=== PATIENT | female | born 1990 | race Two or more races ===

== ENCOUNTER 2016-10-14 14:16 | Inpatient (IN) | payer SELFPAY ==
[~2016-10-14] VITALS: Ht 156.2 cm; Wt 89.8 kg
[2016-10-14] MEDS ORDERED: IV RINGERS,LACTATED 1000ML 1,000 ML IV SCH (14:49)
[2016-10-14] MEDS ORDERED: IBUPROFEN 600 MG TABLET. PO PRN (15:00)
[2016-10-14] MEDS ORDERED: LIDOCAINE 1% PF 30 ML VIAL. INJ PRN (15:00)
[2016-10-14] MEDS ORDERED: OXYTOCIN 30 UNIT/500 ML PREMIX 500 ML IV PRN ×3 (15:00→19:15)
[2016-10-14] MEDS ORDERED: FENTANYL PF 100 MCG/2 ML VIAL. IV PRN (15:00)
[2016-10-14 15:07] LABS: HEMOGLOBIN 11.4 g/dL (12.0-15.5); RED BLOOD COUNT 4.01 x10^6/uL (3.50-5.40); RED CELL DISTRIBUTION WIDTH 17.5 % (11.5-14.5); WHITE BLOOD COUNT 7.2 x10^3/uL (4.0-11.0)
[2016-10-14] MEDS ORDERED: PENICILLIN G K 5,000,000 UNIT in IV NORMAL SALINE 100ML 100 ML IV ONE (15:45)
[2016-10-14 16:15] VITALS: BP 115/67
[2016-10-14 16:32] LABS: OBC FLU VALID
[2016-10-14] MEDS: OSELTAMIVIR 75 MG CAPSULE PO SCH (17:14)
--- NOTE | 2016-10-14 17:32 | PDOC1 ---
OB - History Hx of Present Care: Good Care Ultrasounds: Normal mid trimester US Obstetrical Complications: None Medical Complications: None Past Family/Social History * Past Medical, Surgical, Family and Obstetric Histories reviewed from chart. Rubella: Immune RPR/VDRL: Negative HBsAG: Negative OB - Chief Complaint & HPI Date of Admission: Date of Admission: Oct 14, 2016 at 14:16 Chief Complaint/History : 4 Para: 3 EGA: 38 Reason for admission: active labor Admission Nurse Assessment Rev: Yes Problems: OB - Admission Exam Physical Exam Vitals: VS - Last 72 Hours, by Label Date Time Temp Pulse Resp B/P Pulse Ox O2 Delivery O2 Flow Rate FiO2 10/14/16 16:15 98.8 80 20 115/67 98.8 HEENT: Normal Heart: Regular Rate Lungs: Clear Abdomen: Gravid, Non tender, Soft Extremities: Edema Reflexes: Normal Cervical Dilatation: 4cm Effacement: 75% Station: -2 Membranes: Ruptured Amniotic Fluid: Clear Heart Rate: Normal Accelerations: Accelerations Present Decelerations: No decelerations Contractions on Admission: < 5 Minutes Apart Intensity: Firm Text A: 38 wks IUP SROM Active labor P: Admit for labor management. JILLIAN WATTS Jr, MD Oct 14, 2016 17:32
--- NOTE | 2016-10-14 19:07 | PDOC ---
VAGINAL DELIVERY DATE DATE: 10/14/16 TIME: 19:05 : 4 Para: 4 EGA: 38 VAGINAL DELIVERY: VTX VACCUM ASSISTED: No PLACENTA: Spontaneous 8/9 SEX: Male WEIGHT Weight [ 3515 gm] Nuchal Cord: No Amniotic Fluid: Clear PAIN: Natural EPISIOTOMY: No EXTENSION: No EBL 300 ml COMPLICATIONS none CONDITION pt. stable Signs of Intrauterine Infectio: None Shoulder Dystocia: No, Kaveh Maneuver, Suprapubic Pressure Problems: JILLIAN WATTS Jr, MD Oct 14, 2016 19:07
[2016-10-14] MEDS ORDERED: MAG HYDROX/ALUMINUM HYD/SIMETH 30 ML ORAL.SUSP PO PRN (19:15)
[2016-10-14] MEDS ORDERED: MAGNESIUM HYDROXIDE 2,400 MG/30 ML ORAL.SUSP. PO PRN (19:15)
[2016-10-14] MEDS ORDERED: HYDROCORTISONE 1% TOPICAL OINTMENT 30GM TUBE. TP PRN (19:15)
[2016-10-14] MEDS ORDERED: OXYCODONE/APAP 5/325 TABLET. PO PRN (19:15)
[2016-10-14] MEDS ORDERED: SIMETHICONE 80 MG TAB.CHEW PO PRN (19:15)
[2016-10-14] MEDS ORDERED: ZOLPIDEM 5 MG TABLET. PO PRN (19:15)
[2016-10-14] MEDS ORDERED: MMR per PROTOCOL. MC PRN (19:15)
[2016-10-14] MEDS ORDERED: PHENYLEPH/MINERAL OIL/PETROLAT RECTAL OINTMENT 28GM TUBE. RC PRN (19:15)
[2016-10-14] MEDS ORDERED: DIPHENHYDRAMINE HCL 25 MG CAPSULE PO PRN (19:15)
[2016-10-14] MEDS ORDERED: BENZOCAINE 20% TOPICAL AEROSOL SPRAY 57GM CAN. TP PRN (19:15)
[2016-10-14] MEDS ORDERED: 0.9 % SODIUM CHLORIDE 10 ML DISP.SYRIN. IV PRN (19:15)
[2016-10-14] MEDS ORDERED: ACETAMINOPHEN 325 MG TABLET. PO PRN (19:15)
[2016-10-14] MEDS: IBUPROFEN 800 MG TABLET. PO PRN (21:26)
[2016-10-14 21:57] VITALS: BP 107/59
[2016-10-14 22:34] VITALS: BP 109/76
[2016-10-15] MEDS: IBUPROFEN 800 MG TABLET. PO PRN ×2 (03:50→20:57)
[2016-10-15 04:00] VITALS: BP 104/59
[2016-10-15 05:39] LABS: BASO % 0 % (0-3); EOS % 0 % (0-3); HEMATOCRIT 34.3 % (36.0-47.0); HEMOGLOBIN 11.3 g/dL (12.0-15.5); LYMPH # 1.1 x10^3/uL (1.0-4.8); LYMPH % 14 % (24-48); MEAN CORPUSCULAR HEMOGLOBIN 29 pg (25-35); MEAN CORPUSCULAR HGB CONC 33 g/dL (31-37); MEAN CORPUSCULAR VOLUME 87 fL (79-100); MONO % 8 % (0-9); NEUT % 78 % (31-73); PLATELET COUNT 188 x10^3/uL (140-400); RED BLOOD COUNT 3.95 x10^6/uL (3.50-5.40); RED CELL DISTRIBUTION WIDTH 17.3 % (11.5-14.5); WHITE BLOOD COUNT 8.1 x10^3/uL (4.0-11.0)
[2016-10-15] MEDS ORDERED: FERROUS SULFATE 325 MG TABLET PO SCH (08:00)
--- NOTE | 2016-10-15 08:45 | PDOC ---
OB Progress Note Date of Service 10/15/16 Time of Evaluation 0840 Notes Pt. with Influenza B. No fevers or severe URI at this time. She delivered yesterday without complications. She desires PP BTL. Lab Laboratory Tests Test 10/14/16 14:45 10/14/16 15:53 10/14/16 16:10 10/15/16 05:00 White Blood Count 7.2x10^3/uL (4.0-11.0) 8.1x10^3/uL (4.0-11.0) Red Blood Count 4.01x10^6/uL (3.50-5.40) 3.95x10^6/uL (3.50-5.40) Hemoglobin 11.4g/dL (12.0-15.5) 11.3g/dL (12.0-15.5) Hematocrit 35.0% (36.0-47.0) 34.3% (36.0-47.0) Mean Corpuscular Volume 87fL (79-100) 87fL (79-100) Mean Corpuscular Hemoglobin 29pg (25-35) 29pg (25-35) Mean Corpuscular Hemoglobin Concent 33g/dL (31-37) 33g/dL (31-37) Red Cell Distribution Width 17.5% (11.5-14.5) 17.3% (11.5-14.5) Platelet Count 183x10^3/uL (140-400) 188x10^3/uL (140-400) RPR Titer Additional Testing Negative (Non Reactive) Influenza Type A Antigen Negative (NEGATIVE) Influenza Type B Antigen Positive (NEGATIVE) Neutrophils (%) (Auto) 78% (31-73) Lymphocytes (%) (Auto) 14% (24-48) Monocytes (%) (Auto) 8% (0-9) Eosinophils (%) (Auto) 0% (0-3) Basophils (%) (Auto) 0% (0-3) Neutrophils # (Auto) 6.3x10^3uL (1.8-7.7) Lymphocytes # (Auto) 1.1x10^3/uL (1.0-4.8) Monocytes # (Auto) 0.7x10^3/uL (0.0-1.1) Eosinophils # (Auto) 0.0x10^3/uL (0.0-0.7) Basophils # (Auto) 0.0x10^3/uL (0.0-0.2) Laboratory Tests Test 10/14/16 14:45 10/14/16 15:53 10/14/16 16:10 10/15/16 05:00 White Blood Count 7.2x10^3/uL (4.0-11.0) 8.1x10^3/uL (4.0-11.0) Red Blood Count 4.01x10^6/uL (3.50-5.40) 3.95x10^6/uL (3.50-5.40) Hemoglobin 11.4g/dL (12.0-15.5) 11.3g/dL (12.0-15.5) Hematocrit 35.0% (36.0-47.0) 34.3% (36.0-47.0) Mean Corpuscular Volume 87fL (79-100) 87fL (79-100) Mean Corpuscular Hemoglobin 29pg (25-35) 29pg (25-35) Mean Corpuscular Hemoglobin Concent 33g/dL (31-37) 33g/dL (31-37) Red Cell Distribution Width 17.5% (11.5-14.5) 17.3% (11.5-14.5) Platelet Count 183x10^3/uL (140-400) 188x10^3/uL (140-400) RPR Titer Additional Testing Negative (Non Reactive) Influenza Type A Antigen Negative (NEGATIVE) Influenza Type B Antigen Positive (NEGATIVE) Neutrophils (%) (Auto) 78% (31-73) Lymphocytes (%) (Auto) 14% (24-48) Monocytes (%) (Auto) 8% (0-9) Eosinophils (%) (Auto) 0% (0-3) Basophils (%) (Auto) 0% (0-3) Neutrophils # (Auto) 6.3x10^3uL (1.8-7.7) Lymphocytes # (Auto) 1.1x10^3/uL (1.0-4.8) Monocytes # (Auto) 0.7x10^3/uL (0.0-1.1) Eosinophils # (Auto) 0.0x10^3/uL (0.0-0.7) Basophils # (Auto) 0.0x10^3/uL (0.0-0.2) Medications Current Medications Lactated Ringer's (Iv Lactated Ringers) 1,000 ml @ 125 mls/hr Q8H IV Last administered on 10/14/16 15:04; Start 10/14/16 at 14:49 Fentanyl Citrate (Fentanyl 2ml Vial) 100 mcg PRN Q1HR PRN IV Severe pain Last administered on 10/14/16 17:53; Start 10/14/16 at 15:00 Lidocaine HCl 30 ml 30 ml 1X PRN PRN INJ SEE COMMENTS; Start 10/14/16 at 15:00; Stop 10/16/16 at 14:59 Oxytocin/Sodium Chloride (Oxytocin Premix Infusion) 500 ml @ 0 mls/hr CONT PRN PRN IV Post delivery bleeding; Start 10/14/16 at 15:00 Ibuprofen 600 mg 600 mg PRN Q6HRS PRN PO PAIN; Start 10/14/16 at 15:00 Penicillin G Potassium/Sodium Chloride (Pfizerpen/Iv Sodium Chloride 0.9% 100ml ) 100 ml @ 100 mls/hr 1X ONCE IV Last administered on 10/14/16 16:06; Start 10/14/16 at 15:45; Stop 10/14/16 at 16:44; Status DC Oseltamivir Phosphate 75 mg 75 mg BID PO Last administered on 10/14/16 17:14; Start 10/14/16 at 17:00; Stop 10/19/16 at 16:59 Oxytocin/Sodium Chloride (Oxytocin Premix Infusion) 500 ml @ 0 mls/hr CONT PRN IV SEE I/O RECORD Last administered on 10/14/16 17:54; Start 10/14/16 at 16:45 Sodium Chloride 10 ml 10 ml QSHIFT PRN IV AFTER MEDS AND BLOOD DRAWS; Start 10/14/16 at 19:15 Oxytocin/Sodium Chloride (Oxytocin Premix Infusion) 500 ml @ 62.5 mls/hr CONT PRN IV SEE I/O RECORD; Start 10/14/16 at 19:15; Stop 10/15/16 at 03:14; Status DC Acetaminophen (Tylenol) 650 mg PRN Q6HRS PRN PO MILD PAIN / TEMP; Start at 19:15 Ibuprofen (Motrin) 800 mg PRN Q8HRS PRN PO INFLAMMATION/PAIN PREVENTION Last administered on 10/15/16t 03:50; Start 10/14/16 at 19:15 Docusate Sodium (Colace) 100 mg PRN BID PRN PO CONSTIPATION; Start 10/14/16 at 19:15 Magnesium Hydroxide (Milk Of Magnesia) 2,400 mg PRN DAILY PRN PO CONSTIPATION; Start 10/14/16 at 19:15 Al Hydroxide/Mg Hydroxide (Mylanta Plus Xs) 30 ml PRN Q4HRS PRN PO HEARTBURN / GAS; Start 10/14/16 at 19:15 Simethicone (Gas-X) 80 mg PRN AFTMEALHC PRN PO GAS / BLOATING; Start 10/14/16 at 19:15 Diphenhydramine HCl (Benadryl) 25 mg PRN Q6HRS PRN PO ITCHING; Start 10/14/16 at 19:15 Benzocaine (Americaine) 1 spray PRN QID PRN TP TOPICAL PAIN Last administered on 10/14/16t 21:26; Start 10/14/16 at 19:15 Phenyleph/Shark Oil/Min Oil/Petrol (Preparation H) 1 luis PRN QID PRN RC RECTAL PAIN; Start 10/14/16 at 19:15 Hydrocortisone (Cortaid) 1 luis PRN QID PRN TP PERINEAL PAIN; Start 10/14/16 at 19:15 Ferrous Sulfate (Feosol) 325 mg BIDWMEALS PO ; Start 10/15/16 at 08:00 Zolpidem Tartrate (Ambien) 5 mg PRN QHS PRN PO INSOMNIA, MAY REPEAT X1; Start 10/14/16 at 19:15 Info (Do NOT chart on this placeholder) 1 ea 1X PRN PRN MC SEE COMMENTS; Start 10/14/16 at 19:15 Info (Do NOT chart on this placeholder) 1 ea 1X PRN PRN MC SEE COMMENTS; Start 10/14/16 at 19:15 Oxycodone/ Acetaminophen (Percocet 5/325) 2 tab PRN Q4HRS PRN PO MODERATE PAIN , SEVERE PAIN; Start 10/14/16 at 19:15 Exam CV: NSR without murmur Lungs: CTA kevin. Abd: soft, mild tendernes, fundus firm Assessment PPD#1 s/p Plan of Care: Continue current Tx, Mgmt (Plan for PP BTL today.) JILLIAN WATTS Jr, MD Oct 15, 2016 08:44
[2016-10-15] MEDS: DOCUSATE SODIUM 100 MG CAPSULE PO PRN (09:18)
[2016-10-15 11:15] VITALS: BP 106/68
[2016-10-15] MEDS ORDERED: SUCCINYLCHOLINE 200 MG/10 ML VIAL. ONE (12:45)
[2016-10-15] MEDS ORDERED: FENTANYL PF 100 MCG/2 ML VIAL. ONE (12:45)
[2016-10-15] MEDS ORDERED: DEXAMETHASONE SOD PHOS 20 MG/5 ML VIAL. ONE (12:46)
[2016-10-15] MEDS ORDERED: ONDANSETRON PF 4 MG/2 ML VIAL. ONE (12:46)
[2016-10-15] MEDS ORDERED: PROPOFOL 20 ML IV ONE (12:46)
[2016-10-15] MEDS ORDERED: SEVOFLURANE 16 TO 30 MINUTES. IH ONE (12:46)
[2016-10-15] MEDS ORDERED: LIDOCAINE 2% 100 MG/5 ML DISP.SYRIN. ONE (12:46)
[2016-10-15] MEDS ORDERED: IV RINGERS,LACTATED 1000ML 1,000 ML IV SCH (13:07)
[2016-10-15] MEDS ORDERED: HYDROMORPHONE 2 MG/ML VIAL. IV PRN (13:15)
[2016-10-15] MEDS ORDERED: PROCHLORPERAZINE 10 MG/2 ML VIAL. IV PRN (13:15)
[2016-10-15] MEDS ORDERED: FENTANYL PF 100 MCG/2 ML VIAL. IV PRN (13:15)
[2016-10-15] MEDS ORDERED: MORPHINE SULFATE 2 MG/ML DISP.SYRIN. IV PRN (13:15)
[2016-10-15] MEDS ORDERED: LIDOCAINE 1% 1 ML SYRINGE. ID PRN (13:15)
[2016-10-15] MEDS ORDERED: ONDANSETRON PF 4 MG/2 ML VIAL. IV PRN (13:15)
[2016-10-15] MEDS ORDERED: BUPIVACAINE-EPI 0.25%-1:200000 MPF 30 ML VIAL. ONE (13:16)
--- NOTE | 2016-10-15 14:14 | PDOC ---
BRIEF OPERATIVE NOTE Pre-Op Diagnosis Sterilization Post-Op Diagnosis Same Procedure Performed PP BTL Surgeon Dr. Narayan Dog Control Officer Chana Anesthesia Type: General Blood Loss 10 ml Specimens Obtained none Findings nml post uterus, nml fallopian tubes kevin. Complications none Additional Remarks ptJILLIAN Dunaway Jr, MD Oct 15, 2016 14:14
[2016-10-15] MEDS: FENTANYL PF 100 MCG/2 ML VIAL. IV PRN ×2 (14:43→15:03)
[2016-10-15] MEDS ORDERED: ALBUTEROL SULFATE 2.5 MG/3 ML NEBU. NEB ONE (14:45)
[2016-10-15 15:45] VITALS: BP 105/55
[2016-10-15] MEDS: OSELTAMIVIR 75 MG CAPSULE PO SCH ×2 (15:46→20:57)
[2016-10-15 16:00] VITALS: BP 109/57
[2016-10-15 16:36] VITALS: BP 104/59
--- NOTE | 2016-10-15 18:10 | OP ---
DATE OF SURGERY: PREOPERATIVE DIAGNOSIS: Sterilization. POSTOPERATIVE DIAGNOSIS: Sterilization. PROCEDURE: BTL with Filshie clips. SURGEON: Dr. Parrish Narayan. SUPERVISOR MAILS: ____. ANESTHESIA: GETA. ESTIMATED BLOOD LOSS: 10 mL. COMPLICATIONS: None. FINDINGS: Normal uterus, normal fallopian tubes bilaterally. SUMMARY: A 26-year-old 4, para 4 day #1, status post spontaneous vaginal delivery, desires permanent sterilization. The patient was counseled on risks, benefits and expectations as well as the failure rate and voiced clear understanding to proceed. DESCRIPTION OF PROCEDURE: The patient was taken to surgery suite and placed in dorsal supine position. She was prepped with ChloraPrep and draped in sterile fashion. After adequate anesthesia, 2 Allis clamps were placed just below the umbilicus about 3-4 cm apart. A 0.25% Marcaine with epinephrine was injected between the 2 Allis clamps in a horizontal fashion. A scalpel was utilized to make an incision between the 2 Allis clamps in a horizontal fashion. With the aid of Allis clamps and curved Zamorano scissors, the fascia and peritoneum was then incised at the 12 and 6 o'clock position. The Army-Atkins retractors were placed, which were then replaced with the S retractors. The left fallopian tube was identified and grasped with Babcocks and followed out to its fimbriated end. Filshie clip was applied in the isthmus region of the left fallopian tube. Same process took place with the right fallopian tube. The fascia was reapproximated using 2-0 Vicryl suture in running fashion. Skin was reapproximated using 4-0 Vicryl suture in subcuticular manner. The patient tolerated the procedure well and was taken to recovery room in stable condition. Sponge and needle counts correct x 3. PARRISH NARAYAN MD DR: ANDREW/cecile JOB#: [id number] / [id number]
[2016-10-15 23:00] VITALS: BP 106/70
[2016-10-16 06:07] VITALS: BP 106/65
[2016-10-16] MEDS: IBUPROFEN 800 MG TABLET. PO PRN ×2 (08:30→17:39)
[2016-10-16] MEDS: OSELTAMIVIR 75 MG CAPSULE PO SCH ×2 (08:30→17:39)
[2016-10-16] MEDS: DOCUSATE SODIUM 100 MG CAPSULE PO PRN ×2 (08:31→17:39)
--- NOTE | 2016-10-16 09:38 | PDOC ---
OB Progress Note Date of Service 10/16/16 Time of Evaluation 0935 Notes PT. feeling better. Non productive cough. No fevers. Lab Laboratory Tests Test 10/14/16 14:45 10/14/16 15:53 10/14/16 16:10 10/15/16 05:00 White Blood Count 7.2x10^3/uL (4.0-11.0) 8.1x10^3/uL (4.0-11.0) Red Blood Count 4.01x10^6/uL (3.50-5.40) 3.95x10^6/uL (3.50-5.40) Hemoglobin 11.4g/dL (12.0-15.5) 11.3g/dL (12.0-15.5) Hematocrit 35.0% (36.0-47.0) 34.3% (36.0-47.0) Mean Corpuscular Volume 87fL (79-100) 87fL (79-100) Mean Corpuscular Hemoglobin 29pg (25-35) 29pg (25-35) Mean Corpuscular Hemoglobin Concent 33g/dL (31-37) 33g/dL (31-37) Red Cell Distribution Width 17.5% (11.5-14.5) 17.3% (11.5-14.5) Platelet Count 183x10^3/uL (140-400) 188x10^3/uL (140-400) RPR Titer Additional Testing Negative (Non Reactive) Influenza Type A Antigen Negative (NEGATIVE) Influenza Type B Antigen Positive (NEGATIVE) Neutrophils (%) (Auto) 78% (31-73) Lymphocytes (%) (Auto) 14% (24-48) Monocytes (%) (Auto) 8% (0-9) Eosinophils (%) (Auto) 0% (0-3) Basophils (%) (Auto) 0% (0-3) Neutrophils # (Auto) 6.3x10^3uL (1.8-7.7) Lymphocytes # (Auto) 1.1x10^3/uL (1.0-4.8) Monocytes # (Auto) 0.7x10^3/uL (0.0-1.1) Eosinophils # (Auto) 0.0x10^3/uL (0.0-0.7) Basophils # (Auto) 0.0x10^3/uL (0.0-0.2) Medications Current Medications Lactated Ringer's (Iv Lactated Ringers) 1,000 ml @ 125 mls/hr Q8H IV Last administered on 10/14/16 15:04; Start 10/14/16 at 14:49 Fentanyl Citrate (Fentanyl 2ml Vial) 100 mcg PRN Q1HR PRN IV Severe pain Last administered on 10/14/16 17:53; Start 10/14/16 at 15:00 Lidocaine HCl 30 ml 30 ml 1X PRN PRN INJ SEE COMMENTS; Start 10/14/16 at 15:00; Stop 10/16/16 at 14:59 Oxytocin/Sodium Chloride (Oxytocin Premix Infusion) 500 ml @ 0 mls/hr CONT PRN PRN IV Post delivery bleeding; Start 10/14/16 at 15:00 Ibuprofen 600 mg 600 mg PRN Q6HRS PRN PO PAIN Last administered on 10/15/16 09 :18; Start 10/14/16 at 15:00 Penicillin G Potassium/Sodium Chloride (Pfizerpen/Iv Sodium Chloride 0.9% 100ml ) 100 ml @ 100 mls/hr 1X ONCE IV Last administered on 10/14/16 16:06; Start 10/14/16 at 15:45; Stop 10/14/16 at 16:44; Status DC Oseltamivir Phosphate 75 mg 75 mg BID PO Last administered on 10/16/16 08:30; Start 10/14/16 at 17:00; Stop 10/19/16 at 16:59 Oxytocin/Sodium Chloride (Oxytocin Premix Infusion) 500 ml @ 0 mls/hr CONT PRN IV SEE I/O RECORD Last administered on 10/14/16 17:54; Start 10/14/16 at 16:45 Sodium Chloride 10 ml 10 ml QSHIFT PRN IV AFTER MEDS AND BLOOD DRAWS; Start 10/14/16 at 19:15 Oxytocin/Sodium Chloride (Oxytocin Premix Infusion) 500 ml @ 62.5 mls/hr CONT PRN IV SEE I/O RECORD; Start 10/14/16 at 19:15; Stop 10/15/16 at 03:14; Status DC Acetaminophen (Tylenol) 650 mg PRN Q6HRS PRN PO MILD PAIN / TEMP; Start at 19:15 Ibuprofen (Motrin) 800 mg PRN Q8HRS PRN PO INFLAMMATION/PAIN PREVENTION Last administered on 10/16/16 08:30; Start 10/14/16 at 19:15 Docusate Sodium (Colace) 100 mg PRN BID PRN PO CONSTIPATION Last administered on 10/16/16 08:31; Start 10/14/16 at 19:15 Magnesium Hydroxide (Milk Of Magnesia) 2,400 mg PRN DAILY PRN PO CONSTIPATION; Start 10/14/16 at 19:15 Al Hydroxide/Mg Hydroxide (Mylanta Plus Xs) 30 ml PRN Q4HRS PRN PO HEARTBURN / GAS; Start 10/14/16 at 19:15 Simethicone (Gas-X) 80 mg PRN AFTMEALHC PRN PO GAS / BLOATING Last administered on 10/16/16 08:30; Start 10/14/16 at 19:15 Diphenhydramine HCl (Benadryl) 25 mg PRN Q6HRS PRN PO ITCHING; Start 10/14/16 at 19:15 Benzocaine (Americaine) 1 spray PRN QID PRN TP TOPICAL PAIN Last administered on 10/14/16 21:26; Start 10/14/16 at 19:15 Phenyleph/Shark Oil/Min Oil/Petrol (Preparation H) 1 luis PRN QID PRN RC RECTAL PAIN; Start 10/14/16 at 19:15 Hydrocortisone (Cortaid) 1 luis PRN QID PRN TP PERINEAL PAIN; Start 10/14/16 at 19:15 Ferrous Sulfate (Feosol) 325 mg BIDWMEALS PO Last administered on 10/16/16 08: 30; Start 10/15/16 at 08:00 Zolpidem Tartrate (Ambien) 5 mg PRN QHS PRN PO INSOMNIA, MAY REPEAT X1; Start 10/14/16 at 19:15 Info (Do NOT chart on this placeholder) 1 ea 1X PRN PRN MC SEE COMMENTS; Start 10/14/16 at 19:15 Info (Do NOT chart on this placeholder) 1 ea 1X PRN PRN MC SEE COMMENTS; Start 10/14/16 at 19:15 Oxycodone/ Acetaminophen (Percocet 5/325) 2 tab PRN Q4HRS PRN PO MODERATE PAIN , SEVERE PAIN Last administered on 10/15/16t 15:54; Start 10/14/16 at 19:15 Fentanyl Citrate (Fentanyl 2ml Vial) 100 mcg STK-MED ONCE .ROUTE ; Start at 12:45; Stop 10/15/16 at 12:46; Status DC Succinylcholine Chloride (Anectine) 200 mg STK-MED ONCE .ROUTE ; Start 10/15/16 at 12:45; Stop 10/15/16 at 12:46; Status DC Sevoflurane (Ultane) 15 ml STK-MED ONCE IH ; Start 10/15/16 at 12:46; Stop 10/15 at 12:47; Status DC Lidocaine HCl 100 mg 100 mg STK-MED ONCE .ROUTE ; Start 10/15/16 at 12:46; Stop 10/15/16 at 12:47; Status DC Propofol (Diprivan) 20 ml @ As Directed STK-MED ONCE IV ; Start 10/15/16 at 12: 46; Stop 10/15/16 at 12:47; Status DC Ondansetron HCl (Zofran) 4 mg STK-MED ONCE .ROUTE ; Start 10/15/16 at 12:46; Stop 10/15/16 at 12:47; Status DC Dexamethasone Sodium Phosphate (Decadron) 20 mg STK-MED ONCE .ROUTE ; Start 05/24 at 12:46; Stop 10/15/16 at 12:47; Status DC Ondansetron HCl (Zofran) 4 mg PRN Q6HRS PRN IV Nausea; Start 10/15/16 at 13:15 ; Stop 10/16/16 at 13:14 Fentanyl Citrate (Fentanyl 2ml Vial) 25 mcg PRN Q5MIN PRN IV MILD PAIN; Start 10/15/16 at 13:15; Stop 10/16/16 at 13:14 Fentanyl Citrate (Fentanyl 2ml Vial) 50 mcg PRN Q5MIN PRN IV MODERATE PAIN Last administered on 10/15/16t 15:03; Start 10/15/16 at 13:15; Stop 10/16/16 at 13:14 Morphine Sulfate 1 mg 1 mg PRN Q10MIN PRN IV SEVERE PAIN; Start 10/15/16 at 13: 15; Stop 10/16/16 at 13:14 Lactated Ringer's (Iv Lactated Ringers) 1,000 ml @ 0 mls/hr Q0M IV ; Start 05/24 at 13:07; Stop 10/16/16 at 01:06; Status DC Lidocaine HCl 2 ml 1X PRN PRN ID IV START; Start 10/15/16 at 13:15; Stop at 13:14 Hydromorphone HCl (Dilaudid) 0.5 mg PRN Q10MIN PRN IV SEV PAIN,Second choice; Start 10/15/16 at 13:15; Stop 10/16/16 at 13:14 Prochlorperazine Edisylate (Compazine) 5 mg PACU PRN PRN IV NAUSEA; Start 10/15 at 13:15; Stop 10/16/16 at 13:14 Bupivacaine HCl/ Epinephrine Bitart (Sensorcaine-Epi 0.25%-1:253730 Mpf) 30 ml STK-MED ONCE .ROUTE Last administered on 10/15/16 13:38; Start 10/15/16 at 13: 16; Stop 10/15/16 at 13:17; Status DC Albuterol Sulfate (Ventolin Neb Soln) 2.5 mg 1X ONCE NEB Last administered on 10/15/16 15:01; Start 10/15/16 at 14:45; Stop 10/15/16 at 14:48; Status DC Exam Lungs: mild rhonchi; no wheezing Abd: soft, non tender, fundus firm Assessment PPD#2 s/p Influenza B: improving Plan of Care: See new orders (D/c home.) JILLIAN WATTS Jr, MD Oct 16, 2016 09:38
--- NOTE | 2016-10-16 09:39 | DISCH ---
DISCHARGE INSTRUCTIONS Condition on Discharge Condition on Discharge: Stable Activity After Discharge Activity Instructions for Disc: Activity as tolerated Lifting Instructions after Dis: No heavy lifting Driving Instructions after Dis: Do not drive today Diet after Discharge Diet after Discharge: Regular Contacting the DRTeo after DC Call your doctor for: Concerns you may have Follow-Up Follow up with: [facility] in 2 weeks. JILLIAN WATTS Jr, MD Oct 16, 2016 09:39
[2016-10-16] MEDS ORDERED: IBUP-1060 PO (09:40)
[2016-10-16] MEDS ORDERED: OSEL75CA PO (09:40)
[2016-10-16 14:00] VITALS: BP 96/61
--- NOTE | 2016-10-19 13:12 | PATHOLOGY ---
PATHOLOGY REPORT * * * * * * * * FINAL DIAGNOSIS: 508 gram early term placenta of an estimated 38-weeks gestation with attached membranes and umbilical cord: - Intervillous thrombus. COMMENT: There is no evidence of villitis or chorioamnionitis. (JPM:aimee; d/t: 10/19/2016) REPORT ELECTRONICALLY SIGNED BY: Irvin Marie M.D. DATE/TIME: 10/19/2016 13:11 * * * * * * * * GROSS PATHOLOGY: The specimen is received in formalin, labeled "Gregorio Carey and placenta." Received is a 508 g, 17.8 x 15.5 x 2.8 cm discoid mijares placenta with attached umbilical cord and membranes. The umbilical cord measures 44.8 cm in length and 1.4 cm in average diameter. It is white-scherer, rubbery, trivascular, and has a paracentral insertion, 6.3 cm from the nearest placental margin. The helical twisting pattern is increased. No umbilical strictures or knots are grossly identified. The membranes are scherer, slightly thickened, opaque, and have a marginal insertion. The point of membrane rupture is 7.3 cm from the nearest margin. The surface is blue-appiah with a normal vessel distribution and a minimal amount of subchorionic fibrin deposition. The maternal surface is grossly complete, with intact red brown cotyledons, adherent blood clots, and minimal calcifications. Sectioning reveals a 1.7 cm in greatest dimension dark red thrombus, located in the peripheral portion of the placenta. The remaining parenchyma is red and spongy. Superintendent Stations sections are submitted as follows: A1 umbilical cord and surface vessels A2 membrane roll A3 placental thrombus A4 full-thickness section of placenta (TTL; 10/18/2016) INITIAL CPT CODE(S): A; 70770 Professional services performed by [facility] at [facility] [address] [place] [address] Technical services performed by [facility] at [address] [place] [address], [address], [place] [address]. SPECIMEN(S) RECEIVED: A.Placenta and cord CLINICAL HISTORY: IUP, EDC 10/28/16, vaginal delivery of 7lb 12oz male @ 1859 on 10/14/16, mother + for influenza B PATIENT: GREGORIO CAREY /AGE: 601/08/1990 (Age: 26) PATIENT #: [id number] ALT CASE #: SPECIMEN COLLECTION DATE: 10/14/2016 SPECIMEN RECEIVED DATE: 10/15/2016 [facility] - [address] [place] [address] - PHONE: [phone] * * * END OF REPORT * * *
== END 2016-10-16 18:20 | disposition home or self-care (01) | DRG 767 ==
LOC: 3 SO LND 14:16 → OBSVTOIN 14:16 → 3 SO LND 21:45
PROVIDERS: ADMIT Obstetrics & Gynecology; ATTEND Obstetrics & Gynecology
PROC: 10E0XZZ Delivery of Products of Conception, External Approach (ICD-10-PCS; 2016-10-14)
PROC: 0UL70CZ Occlusion of Bilateral Fallopian Tubes with Extraluminal Device, Open Approach (ICD-10-PCS; principal; 2016-10-15 13:30)
DX: O99.52 Diseases of the respiratory system complicating childbirth (principal); J10.1 Influenza due to other identified influenza virus with other respiratory manifestations; Z37.0 Single live birth; Z3A.38 38 weeks gestation of pregnancy; Z30.2 Encounter for sterilization
CPT/HCPCS: 36415; 85027; 86593; 86850; 86900; 86901; 87804; 88307; A4215; G0378; J0330; J1100; J2405; J2540; J2590; J2704; J3010; J7120